=== PATIENT | male | born 2000 | race Caucasian/White ===

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

== ENCOUNTER 2022-03-03 08:00 | Emergency (ER) | payer OTHER, MEDICAID ==
[2022-03-03] MEDS ORDERED: Iopamidol 755 Mg/ML 100 ML Bottle IV ONE (08:01)
[2022-03-03] MEDS ORDERED: Ondansetron 4 MG/2 ML SDV IVPUSH ONE (20:05)
[2022-03-03] MEDS ORDERED: Acetaminophen 500 MG Tab PO ONE (20:05)
[2022-03-03] MEDS ORDERED: Acetaminophen/oxyCODONE 325-5 MG Tab PO ONE (20:07)
[2022-03-03] MEDS ORDERED: Morphine 4 MG/ML Syringe IVPUSH ONE (20:07)
== END 2022-03-03 22:15 ==
LOC: MW.ED 08:00
DX: S29.9XXA Unspecified injury of thorax, initial encounter (principal); V29.99XA Rider (driver) (passenger) of other motorcycle injured in unspecified traffic accident, initial encounter
CPT/HCPCS: 70450; 71260; 72125; 74177; 96374; 96375; 99284; A9270; J2270; J2405; Q9967